=== PATIENT | female | born 1965 | race Two or more races ===

== ENCOUNTER 2017-07-04 20:00 | Emergency (ER) | payer OTHER ==
[~2017-07-04] VITALS: Ht 165.1 cm; Wt 81.6 kg
--- NOTE | 2017-07-04 22:20 | NUR ---
TO BED 2 A 52 YO FEMALE BIBSELF W C/O "FELL AT WORK"; DENIES HEAD INJURY. C/O "LT KNEE PAIN." DISTAL CMS INTACT. VSS. NONDIAPHORETIC. COMFORT MEASURES RENDERED.
[2017-07-04] MEDS ORDERED: HYDROCODONE/APAP 10/325MG 1 EA TABLET PO ONE (23:00)
[2017-07-04] MEDS ORDERED: ONDANSETRON 4 MG TAB.RAPDIS SL ONE (23:00)
[2017-07-04] MEDS ORDERED: IBUPROFEN 600 MG TABLET PO ONE ×2 (23:00→23:03)
[2017-07-04] MEDS ORDERED: HYDROCODONE/APAP 10/325MG 1 EA TABLET ONE (23:03)
[2017-07-04] MEDS ORDERED: ONDANSETRON 4 MG TAB.RAPDIS ONE (23:04)
--- NOTE | 2017-07-04 23:09 | NUR ---
MEDICATED PATIENT ORDERED BY MICKEY TURNER.
--- NOTE | 2017-07-05 | NUR ---
Patient discharged to home in stable condition. Written and verbal after care instructions given. Patient verbalizes understanding of instruction. Patient is ambulatory, with knee immobilizer, randall well. Accompanied by family. Instructed not to drive. No further complaints.
[2017-07-05 00:01] VITALS: BP 134/68
== END 2017-07-05 00:11 | disposition home or self-care (01) ==
LOC: ER 20:08
DX: M25.562 Pain in left knee (principal)
CPT/HCPCS: 29505; 73564; 99284; A4606; Q0162; Z7610